=== PATIENT | female | born 1940 | race American Indian/Alaskan Native ===

== ENCOUNTER 2018-12-31 11:47 | Emergency (ER) | payer MEDICARE ==
--- NOTE | 2018-12-31 12:17 | Emergency Department Report ---
Blank Doc - Documentation Documentation: Pt is on warfarin and has a PMHx of Waldenstrom. The patient states this morning she noticed a pinkish tint to her urine. 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 This initial assessment diagnostic orders/clinical plan/treatment (s) is/Are subject change based on patient's health status, clinical progression and re- assessment by fellow clinical providers in the ED. Further treatment and work-up at subsequent clinical providers discretion. Patient/guardians urged not to elope from their condition may be serious if not clinically assessed and managed. Initial order include:
--- NOTE | 2018-12-31 13:15 | Emergency Department Report ---
HPI - General Chief Complaint: Urogenital-Female Time Seen by Provider: 12/31/18 12:13 - HPI HPI: 78-year-old -[place] female presents to the emergency department from home with complaint of blood in her urine. She noticed it to be a cranberry co joesph but it got much darker and brighter red upon arrival here. She denies any abdominal pain, back pain or any other physical complaints. She has not taken anything for her symptoms prior to arrival. Her primary care physician is Dr. Virgil Adame and her zinc plate grainer is Dr. Bashir Heart. The patient has a history of hypertension, fibroids, Waldenstrm macroglobulinemia. She presents with some elevated blood pressure but says that she did take her carvedilol, lisinopril and hydralazine today. No recent travel or sick contacts at home. ED Past Medical Hx - Past Medical History Hx Hypertension: Yes Additional medical history: HEART PROBLEMS/ ULCER - Surgical History Additional Surgical History: FIBRIOD TUMOR - Social History Smoking Status: Never Smoker Substance Use Type: None - Medications Home Medications: Home Medications Medication Instructions Recorded Confirmed Last Taken Type cephALEXin [Keflex] 1,000 mg PO Q12HR #28 cap 12/31/18 Unknown Rx ED Review of Systems ROS: Stated complaint: VAGINAL BLEEDING Other details as noted in HPI Comment: All other systems reviewed and negative Constitutional: denies: chills, fever Eyes: denies: eye pain, vision change ENT: denies: ear pain, throat pain Respiratory: denies: cough, shortness of breath Cardiovascular: denies: chest pain, palpitations Gastrointestinal: denies: abdominal pain, vomiting, diarrhea Genitourinary: hematuria. denies: dysuria, discharge Musculoskeletal: denies: back pain, arthralgia Skin: denies: rash, lesions Neurological: denies: headache, weakness Physical Exam - Physical Exam Vital Signs: Vital Signs 12/31/18 12:13 Temperature 97.7 F Pulse Rate 95 H Respiratory 20 Rate Blood Pressure 185/116 O2 Sat by Pulse 98 Oximetry Physical Exam: GENERAL: The patient is well-developed well-nourished. HEENT: Normocephalic. Atraumatic. Patient has moist mucous membranes. EYES: Extraocular motions are intact. Pupils are equal and reactive to light bilaterally. NECK: Supple. Trachea is midline. CHEST/LUNGS: Clear to auscultation. There is no respiratory distress noted. HEART/CARDIOVASCULAR: Regular. There is no tachycardia. There is no obvious murmur. ABDOMEN: Abdomen is soft, nontender. Patient has normal bowel sounds. There is no abdominal distention. SKIN: Skin is warm and dry. NEURO: The patient is awake, alert, and oriented. The patient is cooperative. The patient has no focal neurologic deficits. The patient has normal speech. MUSCULOSKELETAL: There is no tenderness or deformity. There is no limitation range of motion. There is no evidence of acute injury. ED Course Vital Signs 12/31/18 12:13 Temperature 97.7 F Pulse Rate 95 H Respiratory 20 Rate Blood Pressure 185/116 O2 Sat by Pulse 98 Oximetry ED Medical Decision Making - Lab Data Result diagrams: 12/31/18 13:09 12/31/18 13:09 - Radiology Data Radiology results: report reviewed PROCEDURE: CT ABDOMEN PELVIS W CON TECHNIQUE: Computerized axial tomography of the abdomen and pelvis was performed after the IV injection of iodinated nonionic contrast. HISTORY: gross hematuria in cancer patient COMPARISONS: None . FINDINGS: Visualized lower thorax: Heart is enlarged. Bilateral pleural effusions, right greater than left Liver: 17 mm right hepatic lobe cyst. Spleen: Normal size and attenuation. Gallbladder and biliary system: Gallbladder is present. Pancreas: Normal. Adrenals: Normal. Kidneys: 19 mm exophytic left renal cyst. GI tract: Appendix is normal in appearance. No bowel obstruction or inflammation is seen . Lymph nodes and mesentery: Normal. Vasculature: Aortic atherosclerotic calcification. Bladder: Normal. Reproductive organs: Normal. Peritoneum: Small amount of free fluid is seen in the pelvis. Musculoskeletal structures: No significant abnormality. Other: None . IMPRESSION: No hydronephrosis or focal renal lesion. Urinary bladder is unremarkable in CT appearance . Bilateral pleural effusions This document is electronically signed by Stacey Hernandez MD., December 31 2018 07:06:29 PM ET Transcribed By: [facility] Dictated By: STACEY HERNANDEZ M.D. Electronically Authenticated By: STACEY HERNANDEZ M.D. Signed Date/Time: 12/31/181908 - Medical Decision Making Patient presents to the emergency department with complaint of gross hematuria. Urinalysis does reveal hematuria as well as a urinary tract infection. Respirations are mostly unremarkable. She is on Coumadin but the INR is subtherapeutic at 1.4. She has no complaints of any abdominal pain, back pain, chest pain, shortness of breath or any other physical complaints. CT scan of the abdomen and pelvis does not show any acute intra-abdominal or pelvic pathology. There are some mild pleural effusion seen incidentally but once again the patient does not have any complaints of any shortness of breath, chest pain or back pain. She is on furosemide. The hematuria could be secondary to a urinary tract infection. However given the patient's history of Wal[place]rom macroglobulinemia and this acute hematuria, the patient will follow up with urology. She will return to the ER with any worsening of her symptoms or any acute distress. Patient has some elevated blood pressure here that improved with some hydralazine. She will go home and take her blood pressure medications. She has good follow-up with primary care. She will return to the ER with any worsening of her symptoms or any acute distress. - Differential Diagnosis malignancy, kidney stones, UTI Critical Care Time: No Critical care attestation.: If time is entered above; I have spent that time in minutes in the direct care of this critically ill patient, excluding procedure time. ED Disposition Clinical Impression: Hypertension Qualifiers: Hypertension type: essential hypertension Qualified Code(s): I10 - Essential (primary) hypertension Hematuria Qualifiers: Hematuria type: gross Qualified Code(s): R31.0 - Gross hematuria UTI (urinary tract infection) Qualifiers: Urinary tract infection type: acute cystitis Hematuria presence: with hematuria Qualified Code(s): N30.01 - Acute cystitis with hematuria Disposition: TO HOME OR SELFCARE Is pt being admited?: No Condition: Stable Instructions: Acute Hematuria (ED), Hypertension (ED) Additional Instructions: Please follow-up with your primary care physician. Please follow-up with a urologist regarding the blood in your urine. Return to the emergency Department with any worsening of your symptoms or any acute distress. Take her blood pressure medications as previously prescribed. Try and stay away from foods or high in salt and caffeinated products. Daily blood pressure log. Prescriptions: cephALEXin [Keflex] 1,000 mg PO Q12HR #28 cap Referrals: STEPHANIE AHUMADA MD [Staff Physician] - [facility] Time of Disposition: 19:19
[2018-12-31] MEDS ORDERED: APRESOLINE IV ONE ×2 (13:16→18:38)
[2018-12-31 13:35] LABS: Basophils % (Auto) 1.2 % (0.0-1.8); Eosinophils % (Auto) 1.2 % (0.0-4.3); Hematocrit 42.7 % (30.3-42.9); Hemoglobin 14.1 gm/dl (10.1-14.3); Lymphocytes # (Auto) 0.7 K/mm3 (1.2-5.4); Lymphocytes % (Auto) 19.3 % (13.4-35.0); Mean Corpuscular HGB Conc 33 % (30-34); Mean Corpuscular Volume 92 fl (79-97); Monocytes # (Auto) 0.4 K/mm3 (0.0-0.8); Platelet Count 157 K/mm3 (140-440); Red Blood Count 4.66 M/mm3 (3.65-5.03); Red Cell Distribution Width 14.9 % (13.2-15.2)
[2018-12-31 13:37] LABS: Bilirubin,Urine NEG (Negative); Blood,Urine LG (Negative); Color,Urine Red (Yellow); Mucus,Urine 1+ /HPF; Urobilinogen,Urine < 2.0 mg/dL (<2.0)
[2018-12-31 13:42] LABS: RBC,Urine > 182.0 /HPF (0.0-6.0)
[2018-12-31] MEDS ORDERED: ROCEPHIN/NS 1 GM/50 ML 1 GM/50 ML BAG IV ONE (13:43)
[2018-12-31 13:45] LABS: INR 1.41 (0.87-1.13)
[2018-12-31 13:58] LABS: Alanine Aminotransferase 34 units/L (7-56); Albumin 4.2 g/dL (3.9-5); BUN/Creatinine Ratio 32; Blood Urea Nitrogen 19 mg/dL (7-17); Calcium 9.4 mg/dL (8.4-10.2); Hemolysis Index 9
--- NOTE | 2018-12-31 19:08 | Cat Scan Report ---
PROCEDURE: CT ABDOMEN PELVIS W CON TECHNIQUE: Computerized axial tomography of the abdomen and pelvis was performed after the IV inject ion of iodinated nonionic contrast. HISTORY: gross hematuria in cancer patient COMPARISONS: None . FINDINGS: Visualized lower thorax: Heart is enlarged. Bilateral pleural effusions, right greater than left Liver: 17 mm right hepatic lobe cyst. Spleen: Normal size and attenuation. Gallbladder and biliary system: Gallbladder is present. Pancreas: Normal. Adrenals: Normal. Kidneys: 19 mm exophytic left renal cyst. GI tract: Appendix is normal in appearance. No bowel obstruction or inflammation is seen . Lymph nodes and mesentery: Normal. Vasculature: Aortic atherosclerotic calcification. Bladder: Normal. Reproductive organs: Normal. Peritoneum: Small amount of free fluid is seen in the pelvis. Musculoskeletal structures: No significant abnormality. Other: None . IMPRESSION: No hydronephrosis or focal renal lesion. Urinary bladder is unremarkable in CT appearance . Bilateral pleural effusions This document is electronically signed by Stacey Hernandez MD., December 31 2018 07:06:29 PM ET
[2018-12-31 19:57] VITALS: BP 174/102
== END 2018-12-31 20:14 | disposition home or self-care (01) ==
LOC: ED 11:47
DX: N30.01 Acute cystitis with hematuria (principal); I10 Essential (primary) hypertension
CPT/HCPCS: 36415; 74177; 80053; 81001; 85025; 85610; 86850; 86900; 86901; 96365; 96375; 96376; 99284; J0360; J0696; Q9967

== ENCOUNTER 2019-11-08 09:45 | Outpatient (CLI) | payer MEDICARE ==
[2019-11-08] MEDS ORDERED: LIDOCAINE (4%) 40 MG/ML TOPICAL SOLN 50 ML BOTTLE TP ONE (10:30)
[2019-11-08] MEDS ORDERED: SILVER NITRATE APPLICATOR 1 EA TP ONE (10:48)
[2019-11-08] MEDS ORDERED: VITAMIN A & D OINT 56.7 GM TP SCH (12:00)
== END 2019-11-08 09:46 | disposition home or self-care (01) ==
LOC: WOUND 09:45
PROVIDERS: ATTEND Surgery
DX: S81.801A Unspecified open wound, right lower leg, initial encounter (principal); I10 Essential (primary) hypertension; I48.91 Unspecified atrial fibrillation; Z87.891 Personal history of nicotine dependence; W22.8XXA Striking against or struck by other objects, initial encounter; Y93.89 Activity, other specified; Y92.89 Other specified places as the place of occurrence of the external cause; Y99.8 Other external cause status
CPT/HCPCS: 11042; G0463; 99204; 99214; A6250

== ENCOUNTER 2019-11-12 10:54 | Outpatient (CLI) | payer MEDICARE ==
--- NOTE | 2019-11-12 14:10 | Vascular Lab Report ---
DUPLEX DOPPLER LOWER EXTREMITY ARTERIAL, BILATERAL INDICATION: UNSPECIFIED OPEN WOUND RIGHT LOWER LEG INITIAL ENCOUNTER. TECHNIQUE: Arterial duplex examination of both lower extremities performed using B-mode, color flow and spectral Doppler assessment. FINDINGS: RIGHT: Common Femoral Artery: PSV 104 cm/sec. Biphasic waveform. Proximal SFA: PSV 100 cm/sec. Biphasic waveform. Mid SFA: PSV 133 cm/sec. Biphasic waveform. Distal SFA: PSV 70 cm/sec. Biphasic waveform. Popliteal artery: PSV 38 cm/sec. Biphasic waveform. Posterior tibial artery: PSV 28 cm/sec. Biphasic waveform. Anterior tibial artery: PSV 34 cm/sec. Biphasic waveform. Dorsalis Pedis Artery: PSV 30 cm/sec. Biphasic waveform. LEFT: Common Femoral Artery: PSV 39 cm/sec. Biphasic waveform. Proximal SFA: PSV 36 cm/sec. Triphasic waveform. Mid SFA: PSV 31 cm/sec. Monophasic waveform. Distal SFA: PSV 14 cm/sec. Monophasic waveform. Popliteal artery: PSV 20 cm/sec. Monophasic waveform. Posterior tibial artery: PSV 13 cm/sec. Monophasic waveform. Anterior tibial artery: PSV 13 cm/sec. Monophasic waveform. Dorsalis Pedis Artery: PSV 18 cm/sec. Monophasic waveform. Doppler Waveform: * Triphasic is normal. * Biphasic is abnormal if clear transition from triphasic signal along vascular tree. * Monophasic is abnormal. Signer Name: Celestino Vivas Jr, MD Signed: 11/12/2019 2:06 PM Workstation Name: [id number]
== END 2019-11-12 10:55 | disposition home or self-care (01) ==
LOC: VAS 10:54
PROVIDERS: ATTEND Nurse Practitioner
DX: S81.801A Unspecified open wound, right lower leg, initial encounter (principal); X58.XXXA Exposure to other specified factors, initial encounter; Y93.89 Activity, other specified; Y92.89 Other specified places as the place of occurrence of the external cause; Y99.8 Other external cause status
CPT/HCPCS: 93925

== ENCOUNTER 2019-11-15 10:40 | Outpatient (CLI) | payer MEDICARE ==
[2019-11-15] MEDS ORDERED: LIDOCAINE (4%) 40 MG/ML TOPICAL SOLN 50 ML BOTTLE TP ONE (11:42)
== END 2019-11-15 10:41 | disposition home or self-care (01) ==
LOC: WOUND 10:40
PROVIDERS: ATTEND Surgery
DX: S81.801D Unspecified open wound, right lower leg, subsequent encounter (principal); I10 Essential (primary) hypertension; I48.91 Unspecified atrial fibrillation; Z87.891 Personal history of nicotine dependence; W22.8XXD Striking against or struck by other objects, subsequent encounter

== ENCOUNTER 2019-11-22 10:41 | Outpatient (CLI) | payer MEDICARE ==
[2019-11-22] MEDS ORDERED: LIDOCAINE (4%) 40 MG/ML TOPICAL SOLN 50 ML BOTTLE TP ONE (10:48)
== END 2019-11-22 10:42 | disposition home or self-care (01) ==
LOC: WOUND 10:41
PROVIDERS: ATTEND Surgery
DX: S81.801D Unspecified open wound, right lower leg, subsequent encounter (principal); I10 Essential (primary) hypertension; I48.91 Unspecified atrial fibrillation; Z87.891 Personal history of nicotine dependence; W22.8XXD Striking against or struck by other objects, subsequent encounter

== ENCOUNTER 2019-12-06 10:47 | Outpatient (CLI) | payer MEDICARE ==
[2019-12-06] MEDS ORDERED: LIDOCAINE (4%) 40 MG/ML TOPICAL SOLN 50 ML BOTTLE TP ONE (11:30)
== END 2019-12-06 10:48 | disposition home or self-care (01) ==
LOC: WOUND 10:47
PROVIDERS: ATTEND Surgery
DX: S81.801D Unspecified open wound, right lower leg, subsequent encounter (principal); I10 Essential (primary) hypertension; I48.91 Unspecified atrial fibrillation; Z87.891 Personal history of nicotine dependence; W22.8XXD Striking against or struck by other objects, subsequent encounter

== ENCOUNTER 2019-12-20 10:25 | Outpatient (CLI) | payer MEDICARE ==
[2019-12-20] MEDS ORDERED: LIDOCAINE (4%) 40 MG/ML TOPICAL SOLN 50 ML BOTTLE TP ONE (13:00)
== END 2019-12-20 10:26 | disposition home or self-care (01) ==
LOC: WOUND 10:25
PROVIDERS: ATTEND Surgery
DX: S81.801D Unspecified open wound, right lower leg, subsequent encounter (principal); I10 Essential (primary) hypertension; I48.91 Unspecified atrial fibrillation; Z87.891 Personal history of nicotine dependence; W22.8XXD Striking against or struck by other objects, subsequent encounter

== ENCOUNTER 2020-01-03 10:41 | Outpatient (CLI) | payer MEDICARE ==
[2020-01-03] MEDS ORDERED: LIDOCAINE (4%) 40 MG/ML TOPICAL SOLN 50 ML BOTTLE TP ONE (11:21)
== END 2020-01-03 10:42 | disposition home or self-care (01) ==
LOC: WOUND 10:41
PROVIDERS: ATTEND Surgery
DX: S81.801D Unspecified open wound, right lower leg, subsequent encounter (principal); I10 Essential (primary) hypertension; I48.91 Unspecified atrial fibrillation; Z87.891 Personal history of nicotine dependence; W22.8XXD Striking against or struck by other objects, subsequent encounter
CPT/HCPCS: 99213; G0463